=== PATIENT | female | born 1980 ===

== ENCOUNTER 2018-05-16 21:20 | Emergency (ER) | payer SELFPAY ==
[2018-05-16 21:33] VITALS: BMI 34.9
[2018-05-16 21:40] VITALS: BP 139/95; PULSE 96; RESP 19; TEMP 98.2
[2018-05-16] MEDS ORDERED: Albuterol-Ipratrop 3 mg / 0.5 (3 ml) UD IH STA (21:55)
--- NOTE | 2018-05-16 22:26 | ED PDOC ---
Arrival/HPI - General Historian: Patient - History of Present Illness Narrative History of Present Illness (Text): 05/16/18 22:25 38 yo F w/ PMH of asthma and DM, complains of cough with wheezing, bodyaches and sore throat for the past few days. Otherwise: (-) fever, (-) chills, (-) chest pain, (-) dyspnea, (-) hemoptysis, (-) upper back pain, (-) travel, (-) V/D, (-) recent prolonged immobility. <Rachael Rivas PA-C - Last Filed: 05/16/18 23:20> <Shilo Fajardo - Last Filed: 05/16/18 23:59> - General Chief Complaint: Cough, Cold, Congestion Time Seen by Provider: 05/16/18 21:27 Past Medical History - Cardiac Hx Cardiac Disorders: No - Pulmonary Hx Respiratory Disorders: Yes Hx Asthma: Yes - Neurological Hx Neurological Disorder: Yes Hx Migraine: Yes - Endocrine/Metabolic Hx Endocrine Disorders: Yes Hx Diabetes Mellitus Type 1: Yes Other/Comment: Diabetic Neuropathy - Hematological/Oncological Hx Blood Disorders: No - Integumentary Hx Dermatological Disorder: No - Musculoskeletal/Rheumatological Hx Musculoskeletal Disorders: No - Gastrointestinal Hx Gastrointestinal Disorders: No - Genitourinary/Gynecological Hx Genitourinary Disorders: No - Psychiatric Hx Psychophysiologic Disorder: No Hx Substance Use: No - Anesthesia Hx Anesthesia: No <Rachael Rivas PA-C - Last Filed: 05/16/18 23:20> Family/Social History Family/Social History: No Known Family HX Smoking Status: Light Smoker < 10 Cigarettes Daily Hx Alcohol Use: Yes Frequency of alcohol use: Socially Hx Substance Use: No <Rachael Rivas PA-C - Last Filed: 05/16/18 23:20> Allergies/Home Meds <Rachael Rivas PA-C - Last Filed: 05/16/18 23:20> <Shilo Fajardo - Last Filed: 05/16/18 23:59> Allergies/Adverse Reactions: Allergies No Known Allergies Allergy (Verified 05/16/18 21:32) Home Medications: Home Meds Medication Instructions Recorded Confirmed Cyclobenzaprine [Cyclobenzaprine 10 mg PO HS PRN 05/16/18 05/16/18 HCl] Insulin Glargine,Hum.rec.anlog 85 unit SQ HS 05/16/18 05/16/18 [Lantus Solostar] Insulin Lispro Mix 75/25 [humalog 40 units SC BID 05/16/18 05/16/18 Mix 75/25 75 U/Ml-25 U/Ml 10 Ml] MetFORMIN [glucOPHAGE] 1,000 mg PO BID 05/16/18 05/16/18 Review of Systems - Review of Systems Constitutional: absent: Fatigue, Fevers ENT: Sore Throat Respiratory: Cough, Wheezing. absent: SOB Cardiovascular: absent: Chest Pain, Palpitations Gastrointestinal: absent: Abdominal Pain, Diarrhea, Vomiting Skin: absent: Rash, Pruritis, Skin Lesions Neurological: absent: Headache <Rachael Rivas PA-C - Last Filed: 05/16/18 23:20> Physical Exam Vital Signs Temp Pulse Resp BP Pulse Ox 05/16/18 21:35 98.2 F 96 H 19 139/95 H 100 Temperature: Afebrile Blood Pressure: Normal Pulse: Regular Respiratory Rate: Normal Appearance: Positive for: Well-Appearing, Non-Toxic, Comfortable Pain Distress: None Mental Status: Positive for: Alert and Oriented X 3 - Systems Exam Head: Present: Atraumatic, Normocephalic Pupils: Present: PERRL Extroacular Muscles: Present: EOMI Conjunctiva: Present: Normal Ears: Present: Normal, NORMAL TM Mouth: Present: Moist Mucous Membranes Pharnyx: Present: Normal. No: EXUDATE Neck: Present: Normal Range of Motion. No: Meningeal Signs, Lymphadenopathy Respiratory/Chest: Present: Clear to Auscultation, Good Air Exchange, Wheezes (+mild b/l expiratory wheeze). No: Respiratory Distress, Accessory Muscle Use Cardiovascular: Present: Regular Rate and Rhythm, Normal S1, S2. No: Murmurs Abdomen: No: Tenderness, Distention, Peritoneal Signs Back: Present: Normal Inspection Upper Extremity: Present: Normal Inspection. No: Cyanosis, Edema Lower Extremity: Present: Normal Inspection. No: Edema Neurological: Present: GCS=15, CN II-XII Intact, Speech Normal, Motor Func Grossly Intact, Normal Sensory Function Skin: Present: Warm, Dry, Normal Color. No: Rashes Psychiatric: Present: Alert, Oriented x 3, Normal Insight, Normal Concentration <Rachael Rivas PA-C - Last Filed: 05/16/18 23:20> Vital Signs Temp Pulse Resp BP Pulse Ox 05/16/18 21:35 98.2 F 96 H 19 139/95 H 100 <Shilo Fajardo - Last Filed: 05/16/18 23:59> Medical Decision Making ED Course and Treatment: 05/16/18 22:23 Plan : - CXR - Duoneb x1 CXR : NAD. On reevaluation, patient denies any CP, SOB. On exam, patient remains awake alert and oriented 3 in no acute distress. Neck is supple, lungs are clear to auscultation, cardiac regular rate and rhythm. XR results d/w the patient, dx of bronchitis d/w the patient. Advised to follow up with primary care physician in 1-2 days without fail. Advised to take medication as prescribed. Return to the emergency room at any time for any new or worsening symptoms. Patient states she fully agrees with and understands discharge instructions. States that she agrees with the plan and disposition. Verbalized and repeated discharge instructions and plan. I have given the patient opportunity to ask any additional questions. - RAD Interpretation Radiology Orders: 05/16/18 21:56 CHEST TWO VIEWS (PA/LAT) [RAD] Stat - Medication Orders Current Medication Orders: Discontinued Medications Albuterol/Ipratropium (Duoneb 3 Mg/0.5 Mg (3 Ml) Ud) 3 ml IH STAT STA Stop: 05/16/18 21:56 Last Admin: 05/16/18 22:16 Dose: 3 ml <Rachael Rivas PA-C - Last Filed: 05/16/18 23:20> - RAD Interpretation Radiology Orders: 05/16/18 21:56 CHEST TWO VIEWS (PA/LAT) [RAD] Stat - Medication Orders Current Medication Orders: Discontinued Medications Albuterol/Ipratropium (Duoneb 3 Mg/0.5 Mg (3 Ml) Ud) 3 ml IH STAT STA Stop: 05/16/18 21:56 Last Admin: 05/16/18 22:16 Dose: 3 ml <Shilo Fajardo - Last Filed: 05/16/18 23:59> - PA / DELIVERY PERSON / Resident Statement MERYL has reviewed & agrees with the documentation as recorded. <Rachael Rivas PA-C - Last Filed: 05/16/18 23:20> - PA / DELIVERY PERSON / Resident Statement MERYL has reviewed & agrees with the documentation as recorded. <Shilo Fajardo - Last Filed: 05/16/18 23:59> Disposition/Present on Arrival - Present on Arrival Any Indicators Present on Arrival: No History of DVT/PE: No History of Uncontrolled Diabetes: No Urinary Catheter: No History of Decub. Ulcer: No History Surgical Site Infection Following: None - Disposition Have Diagnosis and Disposition been Completed?: Yes Disposition Time: 23:10 Patient Plan: Discharge <Rachael Rivas PA-C - Last Filed: 05/16/18 23:20> <Shilo Fajardo - Last Filed: 05/16/18 23:59> - Disposition Diagnosis: Acute bronchitis Disposition: HOME/ ROUTINE Condition: STABLE Discharge Instructions (ExitCare): Acute Bronchitis, Adult (DC) Additional Instructions: Thank you for letting us take care of you today. You were treated for acute bronchitis. The emergency medical care you received today was directed at your acute symptoms. If you were prescribed any medication, please fill it and take as directed. It may take several days for your symptoms to resolve. Return to the Emergency Department if your symptoms worsen, do not improve, or if you have any other problems. Please contact your doctor in 2 days for re-evaluation and follow up / or call one of the physicians/clinics you have been referred to that are listed on the Patient Visit Information form that is included in your discharge packet. Bring any paperwork you were given at discharge with you along with any medications you are taking to your follow up visit. Our treatment cannot replace ongoing medical care by a primary care provider (PCP) outside of the emergency department. Thank you for allowing the [facility] [employer] team to be part of your care today. If you had an X-Ray : A Radiologist will review the ED reading if any change in treatment is needed we will contact you. Prescriptions: Albuterol 0.083% [Albuterol Sulfate 3 Ml] 3 ml IH Q4 #100 neb Azithromycin [Z-Yon] 250 mg PO DAILY #6 tab Guaifenesin [Adult Tussin Chest Congestion] 200 mg PO Q6H PRN #200 ml PRN Reason: Cough Nebulizer [Aeroeclipse II] 1 each MC DAILY #1 each Referrals: [facility] [place] [Outside] - Follow up with primary Forms: [employer] (Macedonian), WORK NOTE
[2018-05-17 00:20] VITALS: O2SAT 98
--- NOTE | 2018-05-17 09:02 | RAD ---
Date of service: 05/16/2018 HISTORY: cough COMPARISON: No prior. TECHNIQUE: Chest PA and lateral FINDINGS: LUNGS: No active pulmonary disease. PLEURA: No significant pleural effusion identified. No pneumothorax apparent. CARDIOVASCULAR: No aortic atherosclerotic calcification present. Normal cardiac size. No pulmonary vascular congestion. OSSEOUS STRUCTURES: No significant abnormalities. VISUALIZED UPPER ABDOMEN: Normal. OTHER FINDINGS: None. IMPRESSION: No active disease.
== END 2018-05-17 00:19 | disposition home or self-care (01) ==
LOC: MERGE 21:20 → ED 21:20
DX: J20.9 Acute bronchitis, unspecified (principal); F17.210 Nicotine dependence, cigarettes, uncomplicated; E10.40 Type 1 diabetes mellitus with diabetic neuropathy, unspecified; Z79.4 Long term (current) use of insulin

== ENCOUNTER 2018-09-18 10:10 | Emergency (ER) | payer OTHER ==
[2018-09-18 10:29] VITALS: BMI 33.2
[2018-09-18 10:34] VITALS: RESP 18; TEMP 98.8
[2018-09-18] MEDS ORDERED: Sodium Chloride 0.9% 1,000 ML IV STA (10:57)
[2018-09-18] MEDS ORDERED: Lidocaine 5% Patch TD STA (10:58)
[2018-09-18 11:28] LABS: URINE BILIRUBIN NEGATIVE (NEGATIVE); URINE BLOOD LARGE (NEGATIVE); URINE GLUCOSE (UA) 100 mg/dL (NEGATIVE); URINE LEUKOCYTE ESTERASE NEGATIVE Leu/uL (NEGATIVE); URINE PROTEIN 100 mg/dL (<30 mg/dL); URINE UROBILINOGEN 0.2 E.U./dL (<1 E.U./dL)
[2018-09-18 11:29] LABS: URINE APPEARANCE SL CLOUDY (CLEAR); URINE COLOR YELLOW (YELLOW)
[2018-09-18 11:32] LABS: URINE RBC 25 - 30 /hpf (0-2)
[2018-09-18 11:33] LABS: URINE AMORPHOUS SEDIMENT FEW /hpf; URINE BACTERIA MANY /hpf
[2018-09-18 11:36] LABS: BASO # 0.01 K/mm3 (0.0-2.0); BASO % 0.1 % (0.0-3.0); EOS # 0.1 (0.0-0.7); EOS % 1.3 % (1.5-5.0); HEMOGLOBIN 12.2 g/dL (12.0-16.0); LYMPH # 2.7 (1.2-3.4); LYMPH % 35.1 % (22.0-35.0); MEAN CELL VOLUME 75.8 fl (80.0-105.0); MEAN CORPUSCULAR HEMOGLOBIN 24.4 pg (25.0-35.0); MEAN CORPUSCULAR HGB CONC 32.2 g/dl (31.0-37.0); MEAN PLATELET VOLUME 10.4 fl (7.0-11.0); MONO # 0.3 (0.1-0.6); MONO % 3.8 % (1.0-6.0); RED CELL DISTRIBUTION WIDTH 15.7 % (11.5-14.5); WHITE BLOOD COUNT 7.7 10^3/uL (4.5-11.0)
--- NOTE | 2018-09-18 11:44 | ED PDOC ---
Arrival/HPI - General Chief Complaint: Female Genitourinary Time Seen by Provider: 09/18/18 10:19 Historian: Patient - History of Present Illness Narrative History of Present Illness (Text): 38 year old female with past medical history of diabetes and left sided sciatica presents to the emergency department complaining of left sided back pain and vaginal bleeding x one day. Patient describes the pain as sharp, constant, located to the left lower back with radiation into the left leg. Patient states this feels like her typical sciatica pain but worse. Also complaining of crampy lower abdominal pain that she states is typical of her menstrual cramps. She took Advil and Midol yesterday for the payment with mild relief. Associated left knee and lateral thigh pain s/p injury two weeks ago that she was evaluated for at [facility] [place]. Patient states that she had x-rays performed of left knee that were negative for fracture or dislocation and also had a left leg venous duplex but signed out before she could get the results of the exam. Denies recent immobilization, surgery, history of malignancy, hormone use, or smoking. Denies fever, chills, saddle anesthesia, south or bladder incontinence, numbness, weakness, paresthesias, nausea, vomiting, diarrhea, constipation, urinary symptoms, vaginal odor or discharge prior to menstruation, chest pain, shortness of breath, dizziness, headache, or any other associated symptoms. Past Medical History - Provider Review Nursing Documentation Reviewed: Yes - Infectious Disease Hx of Infectious Diseases: None - Cardiac Hx Cardiac Disorders: No - Pulmonary Hx Respiratory Disorders: Yes Hx Asthma: Yes - Neurological Hx Neurological Disorder: Yes Hx Migraine: Yes - Endocrine/Metabolic Hx Endocrine Disorders: Yes Hx Diabetes Mellitus Type 1: Yes Other/Comment: Diabetic Neuropathy - Hematological/Oncological Hx Blood Disorders: No - Integumentary Hx Dermatological Disorder: No - Musculoskeletal/Rheumatological Other/Comment: Sciatica - Gastrointestinal Hx Gastrointestinal Disorders: No - Genitourinary/Gynecological Hx Genitourinary Disorders: No - Psychiatric Hx Psychophysiologic Disorder: No Hx Substance Use: No - Surgical History Hx Section: Yes (x4) Hx Tubal Ligation: Yes Other/Comment: x 1. miscarriage x 1 - Anesthesia Hx Anesthesia: Yes Hx Anesthesia Reactions: No Hx Malignant Hyperthermia: No Family/Social History - Physician Review Nursing Documentation Reviewed: Yes Family/Social History: No Known Family HX Smoking Status: Light Smoker < 10 Cigarettes Daily Hx Alcohol Use: Yes Hx Substance Use: No Allergies/Home Meds Allergies/Adverse Reactions: Allergies No Known Allergies Allergy (Verified 09/18/18 10:28) Home Medications: Home Meds Medication Instructions Recorded Confirmed Cyclobenzaprine [Cyclobenzaprine 10 mg PO HS PRN 05/16/18 09/18/18 HCl] Insulin Glargine,Hum.rec.anlog 85 unit SQ HS 05/16/18 09/18/18 [Lantus Solostar] Insulin Lispro Mix 75/25 [humalog 40 units SC BID 05/16/18 09/18/18 Mix 75/25 75 U/Ml-25 U/Ml 10 Ml] MetFORMIN [glucOPHAGE] 1,000 mg PO BID 05/16/18 09/18/18 Gabapentin [Neurontin] 100 mg PO DAILY 09/18/18 09/18/18 Review of Systems - Review of Systems Constitutional: Normal. absent: Fevers Eyes: Normal. absent: Vision Changes ENT: Normal. absent: Sore Throat, Sinus Congestion Respiratory: Normal. absent: SOB, Cough Cardiovascular: Normal. absent: Chest Pain, Palpitations, Syncope Gastrointestinal: Abdominal Pain. absent: Stool Changes, Constipation, Diarrhea, Nausea, Vomiting, Appetite Changes, Hematochezia, Hematemesis Genitourinary Female: Vaginal Bleeding. absent: Dysuria, Frequency, Hematuria, Urine Output Changes Musculoskeletal: Back Pain, Other (left leg pain). absent: Neck Pain Skin: Normal. absent: Rash Neurological: Normal. absent: Headache, Dizziness Physical Exam Vital Signs Reviewed: Yes Vital Signs Temp Pulse Resp BP Pulse Ox 09/18/18 10:33 98.8 F 105 H 18 133/94 H 99 Temperature: Afebrile Pulse: Tachycardic Respiratory Rate: Normal Appearance: Positive for: Well-Appearing, Non-Toxic, Comfortable Pain Distress: None Mental Status: Positive for: Alert and Oriented X 3 Finger Stick Blood Glucose: 256 - Systems Exam Head: Present: Atraumatic, Normocephalic Pupils: Present: PERRL Extroacular Muscles: Present: EOMI Conjunctiva: Present: Normal Mouth: Present: Moist Mucous Membranes Neck: Present: Normal Range of Motion. No: Meningeal Signs, MIDLINE TENDERNESS, Paraspinal Tenderness Respiratory/Chest: Present: Clear to Auscultation, Good Air Exchange. No: R espiratory Distress, Accessory Muscle Use Cardiovascular: Present: Regular Rate and Rhythm, Normal S1, S2, Peripheal Pulses Present Abdomen: Present: Normal Bowel Sounds. No: Tenderness, Distention, Peritoneal Signs, Rebound, Guarding Back: Present: Normal Inspection, CVA Tenderness (left), Paraspinal Tenderness (left lumbar), Pain with Leg Raise (left positive at 30 degrees, pain to left lower back). No: Midline Tenderness Upper Extremity: Present: Normal Inspection, Normal ROM, NORMAL PULSES, Neurovascularly Intact, Capillary Refill < 2s. No: Cyanosis, Edema, Temperature Abnormalties Lower Extremity: Present: Normal Inspection, NORMAL PULSES, Normal ROM, Tendern ess (left lateral thigh, left medial knee at joint line), Neurovascularly Intact, Capillary Refill < 2 s. No: Edema, CALF TENDERNESS, Swelling, Temperature Abnormalties Neurological: Present: GCS=15, CN II-XII Intact, Speech Normal, Motor Func Grossly Intact, Normal Sensory Function, Gait Normal Skin: Present: Warm, Dry, Normal Color. No: Rashes Psychiatric: Present: Alert, Oriented x 3, Normal Insight, Normal Concentration, Normal Affect, Normal Mood Medical Decision Making ED Course and Treatment: 09/18/18 11:43 Initial Plan: * CBC, CMP * Lipase * Coags * Venous Duplex * Transvaginal US * CT Abd/Pelvis with IV contrast * IVF * Toradol * Lidoderm Patch 09/18/18 13:29 On re-evaluation, patient reports significant reduction in pain. Reports feeling much better. - Lab Interpretations Lab Results: Urine Color Yellow (YELLOW) 09/18/18 11:05 Urine Appearance Sl cloudy (CLEAR) 09/18/18 11:05 Urine pH 6.0 (4.7-8.0) 09/18/18 11:05 Ur Specific [place] 1.025 (1.005-1.035) 09/18/18 11:05 Urine Protein 100 mg/dL (<30 mg/dL) H 09/18/18 11:05 Urine Glucose (UA) 100 mg/dL (NEGATIVE) H 09/18/18 11:05 Urine Ketones Negative mg/dL (NEGATIVE) 09/18/18 11:05 Urine Blood Large (NEGATIVE) H 09/18/18 11:05 Urine Nitrate Negative (NEGATIVE) 09/18/18 11:05 Urine Bilirubin Negative (NEGATIVE) 09/18/18 11:05 Urine Urobilinogen 0.2 E.U./dL (<1 E.U./dL) 09/18/18 11:05 Ur Leukocyte Esterase Negative Louise/uL (NEGATIVE) 09/18/18 11:05 Urine RBC 25 - 30 /hpf (0-2) H 09/18/18 11:05 Urine WBC 1 - 3 /hpf (0-6) 09/18/18 11:05 Ur Epithelial Cells 3 - 4 /hpf (0-5) 09/18/18 11:05 Amorphous Sediment Few /hpf (NONE) 09/18/18 11:05 Urine Bacteria Many /hpf (NONE) 09/18/18 11:05 09/18/18 11:15 09/18/18 11:15 Lab Results 09/18/18 11:15: Sodium 137, Potassium 4.0, Chloride 102, Carbon Dioxide 28, Anion Gap 12, BUN 9, Creatinine 0.4 L, Est GFR ( Amer) > 60, Est GFR (Non-Af Amer) > 60, Random Glucose 255 H, Calcium 8.8, Total Bilirubin 0.3, AST 18, ALT 16, Alkaline Phosphatase 62, Total Protein 7.3, Albumin 3.8, Globulin 3.5, Albumin/Globulin Ratio 1.1, Lipase 170 09/18/18 11:15: PT 11.0, INR 0.97, APTT 31.3 09/18/18 11:15: WBC 7.7, RBC 5.00, Hgb 12.2, Hct 37.9, MCV 75.8 L, MCH 24.4 L, MCHC 32.2, RDW 15.7 H, Plt Count 278, MPV 10.4, Neut % (Auto) 59.7, Lymph % ( Auto) 35.1 H, Gilchrist % (Auto) 3.8, Eos % (Auto) 1.3 L, Baso % (Auto) 0.1, Lymph # (Auto) 2.7, Gilchrist # (Auto) 0.3, Eos # (Auto) 0.1, Baso # (Auto) 0.01, Absolute Neuts (auto) 4.60 09/18/18 11:05: Urine Color Yellow, Urine Appearance Sl cloudy, Urine pH 6.0, Ur Specific [place] 1.025, Urine Protein 100 H, Urine Glucose (UA) 100 H, Urine Ketones Negative, Urine Blood Large H, Urine Nitrate Negative, Urine Bilirubin Negative, Urine Urobilinogen 0.2, Ur Leukocyte Esterase Negative, Urine RBC 25 - 30 H, Urine WBC 1 - 3, Ur Epithelial Cells 3 - 4, Amorphous Sediment Few, Urine Bacteria Many 09/18/18 11:01: POC Glucose (mg/dL) 256 H I have reviewed the lab results: Yes - RAD Interpretation Narrative RAD Interpretations (Text): 09/18/18 12:52 CT Abd/Pelvis with IV contrast: FINDINGS: LOWER THORAX: Unremarkable. LIVER: Unremarkable. No gross lesion or ductal dilatation. GALLBLADDER AND BILE DUCTS: Unremarkable. PANCREAS: Unremarkable. No gross lesion or ductal dilatation. SPLEEN: Unremarkable. ADRENALS: Unremarkable. No mass. KIDNEYS AND URETERS: No renal mass, calculus or hydronephrosis. No hydroureter or ureteral calculus. VASCULATURE: Unremarkable. No aortic aneurysm. There is atherosclerotic calcification of the abdominal aorta. BOWEL: There is mural thickening of the transverse colon. This may be artifactual due to inadequate distention. Nevertheless, consider the possibility colitis. No bowel obstruction. No other abnormal bowel loops are identified. APPENDIX: Not identified. PERITONEUM: Unremarkable. No free fluid. No free air. LYMPH NODES: Unremarkable. No enlarged lymph nodes. BLADDER: Thick walled. Poorly distended. Likely artifactual. Correlate with urinalysis to rule out cystitis. REPRODUCTIVE: Unremarkable uterus. There is endocervical fluid, nonspecific. BONES: No acute fracture. OTHER FINDINGS: None. IMPRESSION: No evidence of urinary calculus or urinary tract obstruction. Questionable mural thickening of the transverse colon. Possibly artifact due to inadequate distention. Rule out colitis. Thick walled urinary bladder, likely due to inadequate distention. Nevertheless, correlate with urinalysis to rule out cystitis. No other significant abnormality. Transvaginal US: FINDINGS: UTERUS: Measures 13.9 x 5.2 x 7.6 cm. Normal in size and appearance. No fibroid or other mass lesion seen. ENDOMETRIUM: Measures between 3 and 9 mm in diameter. This is dependent upon technique of measurement.. Unremarkable. CERVIX: No cervical abnormality identified. RIGHT OVARY: Measures 2.9 x 2.1 x 2.5 cm. No solid mass. Normal flow. LEFT OVARY: Measures 2.6 x 1.6 x 2.2 cm. No solid mass. Normal flow. FREE FLUID: No significant free fluid noted. OTHER FINDINGS: None. IMPRESSION: Unremarkable pelvic ultrasound examination. Left Leg Venous Duplex: FINDINGS: The visualized deep venous system of the left lower extremity is sonographically normal and compressible. Normal wave forms and augmentation are seen. There is no sonographic evidence for deep venous thrombosis in the visualized segments of the left lower extremity. IMPRESSION: 1. No sonographic evidence for deep venous thrombosis in the visualized segments of the left lower extremity. Radiology Orders: 09/18/18 10:55 TRANSVAGINAL [US] Stat 09/18/18 10:56 ABD & PELVIS IV CONTRAST ONLY [CT] Stat 09/18/18 10:58 DUPLEX LOWER EXTRM VEIN LEFT [US] Stat Lac[employer] Spray Booth Operator: Radiologist - Medication Orders Current Medication Orders: Sodium Chloride (Sodium Chloride 0.9%) 1,000 mls @ 999 mls/hr IV .Q1H1M STA Stop: 09/18/18 11:57 Last Admin: 09/18/18 11:17 Dose: 999 mls/hr eMAR Start Stop Document 09/18/18 11:17 EQ (Rec: 09/18/18 11:17 EQ [id number]) Intravenous Solution Start Date 09/18/18 Start Time 11:17 Discontinued Medications Ketorolac Tromethamine (Toradol) 30 mg IVP STAT STA Stop: 09/18/18 10:57 Last Admin: 09/18/18 11:15 Dose: 30 mg MAR Pain Assessment Document 09/18/18 11:15 EQ (Rec: 09/18/18 11:16 EQ [id number]) Pain Reassessment Is this a pain reassessment? No Sleep Is patient sleeping during reassessment? No Presence of Pain Presence of Pain Yes IVP Administration Document 09/18/18 11:15 EQ (Rec: 09/18/18 11:16 EQ [id number]) Charges for Administration # of IVP Administrations 1 Lidocaine (Lidoderm) 1 ea TD STAT STA Stop: 09/18/18 10:59 Last Admin: 09/18/18 11:15 Dose: 1 ea MAR Transdermal Patch Site Document 09/18/18 11:15 EQ (Rec: 09/18/18 11:15 EQ [id number]) Transdermal Patch Site Transdermal Patch Site Left Lower Back Disposition/Present on Arrival - Present on Arrival Any Indicators Present on Arrival: No History of DVT/PE: No History of Uncontrolled Diabetes: No Urinary Catheter: No History of Decub. Ulcer: No History Surgical Site Infection Following: None - Disposition Have Diagnosis and Disposition been Completed?: Yes Diagnosis: Sciatica, Muscle strain, Dysmenorrhea Disposition: HOME/ ROUTINE Disposition Time: 13:13 Patient Plan: Discharge Condition: IMPROVED Discharge Instructions (ExitCare): Muscle Strain, Menstrual Cramps, Sciatica Exercises Additional Instructions: Increase fluids Ibuprofen every 8 hours as needed for pain Lidoderm patch daily, 12 hours on, 12 hours off Followup with gynecology within 2 days Followup with GI within 2 days Followup with orthopedics within 2 days Followup with primary doctor within 2 days Return to ER with any new/worsening symptoms Prescriptions: Ibuprofen [Motrin Tab] 600 mg PO Q8 PRN #30 tab PRN Reason: Pain, Moderate (4-7) Lidocaine 5% [Lidoderm] 1 ea TD DAILY PRN #30 patch PRN Reason: Pain, Mild (1-3) Referrals: Khadijah Alberto MD [Staff Provider] - Follow up with primary Celia Otero MD [Staff Provider] - Follow up with primary Darian Sharma MD [Staff Provider] - Follow up with primary Alan Price MD [Staff Provider] - Follow up with primary Forms: [employer] (Yoruba), WORK NOTE
[2018-09-18 11:45] LABS: ALB/GLOB RATIO 1.1 (1.1-1.8); ALBUMIN 3.8 g/dL (3.0-4.8); ALT/SGPT 16 U/L (7-56); AST/SGOT 18 U/L (14-36); BLOOD UREA NITROGEN 9 mg/dL (7-21); CALCIUM 8.8 mg/dL (8.4-10.5); GFR NON-AFRICAN AMERICAN > 60; LIPASE 170 U/L (23-300)
[2018-09-18 11:52] LABS: INR 0.97; PARTIAL THROMBOPLASTIN TIME 31.3 Seconds (26.9-38.3)
--- NOTE | 2018-09-18 12:34 | CT ---
Date of service: 09/18/2018 PROCEDURE: CT Abdomen and Pelvis with contrast HISTORY: left flank pain COMPARISON: None. TECHNIQUE: Contrast dose: 150 mL Omnipaque 350 Radiation dose: Total exam DLP = 837.16 mGy-cm. This CT exam was performed using one or more of the following dose reduction techniques: Automated exposure control, adjustment of the mA and/or kV according to patient size, and/or use of iterative reconstruction technique. FINDINGS: LOWER THORAX: Unremarkable. LIVER: Unremarkable. No gross lesion or ductal dilatation. GALLBLADDER AND BILE DUCTS: Unremarkable. PANCREAS: Unremarkable. No gross lesion or ductal dilatation. SPLEEN: Unremarkable. ADRENALS: Unremarkable. No mass. KIDNEYS AND URETERS: No renal mass, calculus or hydronephrosis. No hydroureter or ureteral calculus. VASCULATURE: Unremarkable. No aortic aneurysm. There is atherosclerotic calcification of the abdominal aorta. BOWEL: There is mural thickening of the transverse colon. This may be artifactual due to inadequate distention. Nevertheless, consider the possibility colitis. No bowel obstruction. No other abnormal bowel loops are identified. APPENDIX: Not identified. PERITONEUM: Unremarkable. No free fluid. No free air. LYMPH NODES: Unremarkable. No enlarged lymph nodes. BLADDER: Thick walled. Poorly distended. Likely artifactual. Correlate with urinalysis to rule out cystitis. REPRODUCTIVE: Unremarkable uterus. There is endocervical fluid, nonspecific. BONES: No acute fracture. OTHER FINDINGS: None. IMPRESSION: No evidence of urinary calculus or urinary tract obstruction. Questionable mural thickening of the transverse colon. Possibly artifact due to inadequate distention. Rule out colitis. Thick walled urinary bladder, likely due to inadequate distention. Nevertheless, correlate with urinalysis to rule out cystitis. No other significant abnormality.
--- NOTE | 2018-09-18 13:00 | US ---
PROCEDURE: Left lower extremity venous US HISTORY: Leg pain and swelling. Evaluate for DVT. PHYSICIAN(S): Daivd Landaverde MD. TECHNIQUE: Duplex sonography and color-flow Doppler with graded compression were used to evaluate the deep venous system of the left lower extremity. FINDINGS: The visualized deep venous system of the left lower extremity is sonographically normal and compressible. Normal wave forms and augmentation are seen. There is no sonographic evidence for deep venous thrombosis in the visualized segments of the left lower extremity. IMPRESSION: 1. No sonographic evidence for deep venous thrombosis in the visualized segments of the left lower extremity.
--- NOTE | 2018-09-18 13:12 | US ---
Date of service: 09/18/2018 HISTORY: vaginal bleeding, abd pain COMPARISON: None available. TECHNIQUE: Transabdominal and transvaginal FINDINGS: UTERUS: Measures 13.9 x 5.2 x 7.6 cm. Normal in size and appearance. No fibroid or other mass lesion seen. ENDOMETRIUM: Measures between 3 and 9 mm in diameter. This is dependent upon technique of measurement.. Unremarkable. CERVIX: No cervical abnormality identified. RIGHT OVARY: Measures 2.9 x 2.1 x 2.5 cm. No solid mass. Normal flow. LEFT OVARY: Measures 2.6 x 1.6 x 2.2 cm. No solid mass. Normal flow. FREE FLUID: No significant free fluid noted. OTHER FINDINGS: None. IMPRESSION: Unremarkable pelvic ultrasound examination.
[2018-09-18 13:42] VITALS: BP 139/79; PULSE 92; O2SAT 100
--- NOTE | 2018-09-18 15:07 | CARD ---
APPROVED REPORT Date of service: 09/18/2018 EKG Measurement Heart [id number] <Conclusion> Normal sinus rhythm Normal ECG
== END 2018-09-18 13:41 | disposition home or self-care (01) ==
LOC: ED 10:10
DX: N94.6 Dysmenorrhea, unspecified (principal); M54.32 Sciatica, left side; T14.8XXA Other injury of unspecified body region, initial encounter; X58.XXXA Exposure to other specified factors, initial encounter; F17.210 Nicotine dependence, cigarettes, uncomplicated; E10.40 Type 1 diabetes mellitus with diabetic neuropathy, unspecified
CPT/HCPCS: 74177; 76830; 80053; 81001; 81025; 82948; 83690; 85025; 85610; 85730; 93005; 93971; 96374; 99283; J1885; J7030; Q9967